=== PATIENT | male | born 1940 | race Caucasian/White ===

== ENCOUNTER 2017-05-07 15:44 | Inpatient (IN) | payer OTHER, MEDICARE ==
[~2017-05-07] VITALS: Ht 177.8 cm; Wt 84.4 kg
--- NOTE | ~2017-05-07 | CATHLAB ---
[facility] [place] [address] INVASIVE PROCEDURE REPORT Name: REECE HERNANDEZ Room #: 201-P [facility] [place] .R.#: [id number] Admission: 05/07/17 Attend Phys: Francisco J Mcdonald, Discharge: Date of : 40 Date of Service: 05/08/17 1308 Report #: [id number] THIS REPORT FOR: //name// APPROVED REPORT Patient Status: Out-Patient Room #: CV hold Event Personnel: Dr. Rolf De Santiago, RN Annette Laird, RN Kalia Guadalupe, Monitor Mireya Frye, Scrub Exam: generator change Indications: End of battery life, Bradycardia The patient is a 76 year-old male with a history of Bradycardia. Patient Info BUN: 17 Creatine: 1.4 Conscious Sedation Start time: 9:09 End Time: 10:00 Versed 2.0 mg Meperidine IV 25mcg Implanted Devices: Generator- Model [id number] Assurity Pacemaker, [id number], EXP 10-19-2018 Explanted Devices: Generator-Model Adapta ADDR01, SN# [id number] Procedure The patient underwent informed consent. We discussed the details of the procedure including the risks, which include, but not limited to bleeding, infection, vascular damage, cardiac perforation, and pneumothorax. The patient underwent MAC anesthesia, with no anesthesia related complications. The patient was brought to the cardiac catheterization lab and the left chest and shoulder were prepped and draped in a sterile manner. The left subclavian region was infiltrated with 2% Lidocaine subcutaneous anesthesia. A transverse incision was made in the left upper chest cavity. Generator Change The generator change was then secured using 2.0 ethibond. The subcutaneous pocket was irrigated with vancomycin antibiotic [address] [address] INVASIVE PROCEDURE REPORT Name: REECE HERNANDEZ Room #: 201-P [facility] IN M.R.#: [id number] Admission: 05/07/17 Attend Phys: Francisco J Mcdonald, Discharge: Date of : 40 Date of Service: 05/08/17 1308 Report #: [id number] solution.The lead was attached to the appropriate receptacle on the new pulse generator and setscrews firmly tightened to insure adequate contact and stability. The lead and pulse generator were placed into the subcutaneous pocket. Sharp and sponge counts were confirmed to be correct. At this time the pocket was closed subcutaneously with a 2.0 Nurolon and the skin was closed with a 3.0 Vicryl. The operative site was dressed in sterile fashion with steri strips and the patient was transferred to the floor in stable condition. Complications The patient tolerated the procedure well and there were no complications associated with the procedure. Conclusion 1. SUCCESSFUL GENERATOR CHANGE WITH A [facility] DUAL CHAMBER PACER Recommendations 1. ROUTINE POST GENERATOR PROTOCOL. <ELECTRONICALLY SIGNED> By: Raz Bansal MD 05/08/17 1308 1308 1308 Raz Bansal MD /INF
[~2017-05-07 15:44] MED LIST: AMBIEN 5 MG TABL5 M1 PO; CARDIZEM CD240 MG PO; CARDURA4 MG PO; ELIQUIS5 MG PO; HYDROCHLOROTHIA25 M2 PO; LISINOPRIL20 MG PO; PERCOCET 5-3251 EACH PO; TAMSULOSIN HCL0.4 MG PO; ZOFRAN ODT4 MG PO
[2017-05-07 17:33] VITALS: BP 109/69
[2017-05-07 19:17] VITALS: BP 105/66
[2017-05-07 20:07] LABS: HEMATOCRIT 50.4 % (42.0-52.0); HEMOGLOBIN 17.3 gm/dL (14.0-18.0); MCH 32.3 pg (26.0-34.0); MCHC 34.4 g/dL (28.0-37.0); MCV 94.1 fL (80.0-100.0); RBC 5.35 mil/uL (4.50-6.00); RDW 13.4 % (10.5-14.5); WBC 10.7 thou/uL (4.0-11.0)
[2017-05-07 20:21] LABS: ALBUMIN 3.6 g/dL (3.4-5.0); CALCIUM 8.6 mg/dL (8.5-10.1); CREATININE 1.4 mg/dL (0.7-1.3); POTASSIUM 3.5 mmol/L (3.5-5.1); TOTAL BILIRUBIN 0.8 mg/dL (<0.1-1.0); TOTAL PROTEIN 6.3 g/dL (6.4-8.2)
[2017-05-07 23:22] VITALS: BP 98/64
[2017-05-08] VITALS (12 sets, daily range): BP systolic 126–147; BP diastolic 74–90
== END 2017-05-08 16:32 | disposition home or self-care (01) | DRG 259 ==
LOC: 2N 15:44
PROVIDERS: Nurse Practitioner Adult Health
DX: R00.1 Bradycardia, unspecified (principal); R55 Syncope and collapse
CPT/HCPCS: 10081